=== PATIENT | female | born 1950 ===

== ENCOUNTER 2022-08-01 11:12 | Outpatient (CLI) | payer MEDICARE, OTHER ==
[~2022-08-01 11:12] MED LIST: ADV50250 IH; ALBU1.25; ALBU18HF2 IH; ASPI-1265 PO; ATOR40TA7 PO; CHOL2000 PO; CITA20TA28 PO; DICL100G15 TOP; DIPH-423 PO; FLUT9.9S; FURO-150 PO; GABA-532 PO; GLIP10TA21 PO; HYDR100T27 PO; INSU100V36 SQ; KEN0.1O TP; LINA5TAB4 PO; LIPA1CAP29 PO; LISI1TAB51 PO; LOP25T PO; LORA-512 PO; MONT-48 PO; NORCO10T PO; NYST15OI14 TP; SITA100T15 PO; TIOT18CA7 IH; TRAZ-251 PO
== END 2022-08-01 23:59 | disposition home or self-care (01) ==
LOC: LAB 11:12
PROVIDERS: ATTEND Nurse Practitioner Family
DX: D64.9 Anemia, unspecified (principal)
CPT/HCPCS: 36415